=== PATIENT | female | born 1975 | race Two or more races ===

== ENCOUNTER 2022-09-25 10:45 | Inpatient (IN) | payer OTHER ==
[~2022-09-25] VITALS: Ht 165.1 cm; Wt 87.1 kg
[~2022-09-25 10:45] MED LIST: ASA-EC81 MG PO; INDERAL LA80 MG; LASIX20 MG; NO TOMA MED.
[2022-09-25] MEDS ORDERED: ACEBUTOLOL HCL200 MG PO (14:03)
[2022-09-25] MEDS ORDERED: ALTACE5 MG PO (14:03)
== END 2022-10-01 10:51 | disposition home or self-care (01) | DRG 743 ==
LOC: SURH 09-29 07:00 → O/R 09-29 12:28 → SURH 09-29 12:30 → OB/GYN 09-29 16:17
PROVIDERS: ADMIT Obstetrics & Gynecology; ATTEND Obstetrics & Gynecology
PROC: 0UT70ZZ Resection of Bilateral Fallopian Tubes, Open Approach (ICD-10-PCS; 2022-09-29)
PROC: 0UT20ZZ Resection of Bilateral Ovaries, Open Approach (ICD-10-PCS; 2022-09-29)
PROC: 0UT90ZL Resection of Uterus, Supracervical, Open Approach (ICD-10-PCS; principal; 2022-09-29 07:00)
DX: D25.1 Intramural leiomyoma of uterus (principal); N80.03 Adenomyosis of the uterus; N84.0 Polyp of corpus uteri; N83.11 Corpus luteum cyst of right ovary; Z20.822 Contact with and (suspected) exposure to COVID-19; N80.101 Endometriosis of right ovary, unspecified depth